=== PATIENT | female | born 1930 | race Caucasian/White ===

== ENCOUNTER 2018-12-15 16:18 | Observation (INO) | payer MEDICARE, BC ==
[2018-12-15] MEDS ORDERED: TYLENOL 325 MG PO PRN (20:57)
[2018-12-15 21:11] LABS: BASOPHIL % 0.4 % (0.0-0.4); Basophil (Absolute #) 0.03 (0-0.4); Eosinophil % 5.7 % (0.00-5.0); Eosinophil (Absolute #) 0.44 (0-0.5); Granulocyte Absolute (ANC) 4.07 (1.4-6.9); Granulocytes % 52.9 % (36.0-66.0); Hematocrit 34.1 % (35-47); Hemoglobin 11.2 gm/dl (12.0-16.0); Lymphocyte (Absolute #) 2.18 (1.0-4.6); Lymphocytes % 28.3 % (24.0-44.0); Mean Cell Volume 99.4 fl (78-100); Mean Corpuscular Hgb Concent. 32.8 g/dl (32-36); Mean Platelet Volume 9.3 fl (6-9.5); Monocyte (Absolute #) 0.98 (0.0-1.3); Monocytes % 12.7 % (0.0-12.0); Platelet Count 485 K/mm3 (150-450); Red Blood Count 3.43 M/mm3 (4.1-5.4); White Blood Count 7.7 K/mm3 (4.0-10.5)
[2018-12-15 21:13] LABS: Mean Corpuscular Hemoglobin 32.6 pg (26-32)
[2018-12-15 21:17] LABS: ALBUMIN 4.6 g/dL (3.5-5.0); ANION GAP 17.7 MEQ/L (5-15); BILIRUBIN,TOTAL 0.5 mg/dL (0.2-1.3); Calcium 10.1 mg/dL (8.4-10.2); Creatinine 1 2.04 mg/dL (0.52-1.04); Potassium 4.9 mmol/L (3.5-5.1); Total Protein 8.7 g/dL (6.3-8.2)
[2018-12-15] MEDS: Sodium Chloride 0.9% 1000 ML 1,000 ML IV SCH (21:55)
[2018-12-15] MEDS: Aldactone 25 MG PO SCH (23:09)
[2018-12-15] MEDS: ZOCOR 20MG PO SCH (23:09)
[2018-12-15] MEDS: Xalatan OP SCH (23:10)
[2018-12-15] MEDS: Timolol 0.25% Opth Sol 5 ML OP SCH (23:10)
[2018-12-16] MEDS ORDERED: Unasyn 1.5GM / NaCl 100ML 100 ML IV SCH
[2018-12-16] MEDS ORDERED: Unasyn 1.5GM Vial ONE ×2 (00:43→05:57)
[2018-12-16] MEDS ORDERED: Sodium Chloride 0.9% 100 ML IVPB 100 ML IV ONE ×2 (00:44→05:58)
[2018-12-16] MEDS: Unasyn 1.5GM / NaCl 100ML 1.5 GM/100 ML IVPB IV SCH ×5 (00:50→23:02)
--- NOTE | 2018-12-16 08:50 | PCM.NOTE ---
Date and Time: 12/16/18844 Subjective Assessment: doing better - Review of Systems Constitutional: No Fever, No Chills Eyes: No Symptoms Ears, Nose, & Throat: No Symptoms Respiratory: No Cough, No Short Of Breath Cardiac: No Chest Pain, No Edema, No Syncope Abdominal/Gastrointestinal: No Abdominal Pain, No Nausea, No Vomiting, No Diarrhea Genitourinary Symptoms: No Dysuria Musculoskeletal: No Back Pain, No Neck Pain Skin: Cellulitis, No Rash Neurological: No Dizziness, No Focal Weakness, No Sensory Changes Psychological: No Symptoms Endocrine: No Symptoms Hematologic/Lymphatic: No Symptoms Immunological/Allergic: No Symptoms Objective Exam General Appearance: no apparent distress, alert Neurologic Exam: alert, oriented x 3, cooperative, normal mood/affect, nml cerebellar function, sensation nml, No motor deficits Skin Exam: normal color, warm, dry Eye Exam: PERRL, EOMI, eyes nml inspection Ears, Nose, Throat Exam: normal ENT inspection, pharynx normal, moist mucous membranes Neck Exam: normal inspection, non-tender, supple, full range of motion Respiratory Exam: normal breath sounds, lungs clear, No respiratory distress Cardiovascular Exam: regular rate/rhythm, normal heart sounds, edema Gastrointestinal/Abdomen Exam: soft, No tenderness, No mass Extremity Exam: normal inspection, normal range of motion Back Exam: normal inspection, normal range of motion, No CVA tenderness, No vertebral tenderness Pelvic Exam: deferred Rectal Exam: deferred OBJECTIVE DATA Vital Signs: Vital Signs - 24 hr Temp Pulse Resp BP Pulse Ox 12/16/18 06:45 98.5 F 75 18 124/60 97 12/16/18 04:00 97.8 F 82 20 155/70 94 L 12/16/18 00:00 97.6 F 75 20 118/55 94 L 12/15/18 20:00 97.5 F 73 18 143/70 98 12/15/18 16:48 98.7 F 81 20 139/63 98 Pain Assessment - Last Documented Pain Intensity 0 Pain Scale Used [facility] Intake and Output: Intake & Output 12/13/18 12/14/18 12/15/18 12/16/18 11:59 11:59 11:59 11:59 Intake Total 1068 Output Total 2100 Balance -1032 Weight 71.6 kg Lab Results: Accuchecks Accucheck Value: 100 Accucheck Value: 86 Lab Results-Last 24 Hours 12/15/18 12/15/18 12/15/18 Range/Units 18:30 18:30 21:32 WBC 7.7 (4.0-10.5) K/mm3 RBC 3.43 L (4.1-5.4) M/mm3 Hgb 11.2 L (12.0-16.0) gm/dl Hct 34.1 L (35-47) % MCV 99.4 (78-100) fl MCH 32.6 H (26-32) pg MCHC 32.8 (32-36) g/dl RDW 13.0 (11.5-14.0) % Plt Count 485 H (150-450) K/mm3 MPV 9.3 (6-9.5) fl Gran % 52.9 (36.0-66.0) % Eos # (Auto) 0.44 (0-0.5) Absolute Lymphs (auto) 2.18 (1.0-4.6) Absolute Monos (auto) 0.98 (0.0-1.3) Lymphocytes % 28.3 (24.0-44.0) % Monocytes % 12.7 H (0.0-12.0) % Eosinophils % 5.7 H (0.00-5.0) % Basophils % 0.4 (0.0-0.4) % Absolute Granulocytes 4.07 (1.4-6.9) Basophils # 0.03 (0-0.4) Sodium 139 (137-145) mmol/L Potassium 4.9 (3.5-5.1) mmol/L Chloride 99 (98-107) mmol/L Carbon Dioxide 27 (22-30) mmol/L Anion Gap 17.7 H (5-15) MEQ/L BUN 58 H (7-17) mg/dL Creatinine 2.04 H (0.52-1.04) mg/dL Estimated GFR 24.5 ML/MIN Glucose 91 (74-106) mg/dL Lactic Acid 1.4 (0.4-2.0) Calcium 10.1 (8.4-10.2) mg/dL Total Bilirubin 0.50 (0.2-1.3) mg/dL AST 41 H (14-36) U/L ALT 17 (0-35) U/L Alkaline Phosphatase 54 (38-126) U/L Serum Total Protein 8.7 H (6.3-8.2) g/dL Albumin 4.6 (3.5-5.0) g/dL Multi-Disciplinary Progress Notes: Multi-Disciplinary Progress Notes 12/16/18 07:17 Pharmacy Note by Sung [place] Estimated CRCL is 15ml/min. Please review if Metformin is needed. Initialized on 12/16/18 07:17 - END OF NOTE Assessment/Plan (1) Cellulitis and abscess of left lower extremity Current Visit: Yes Status: Acute Assessment & Plan: continue present management Code(s): L03.116 - CELLULITIS OF LEFT LOWER LIMB; L02.416 - CUTANEOUS ABSCESS OF LEFT LOWER LIMB (2) Cellulitis and abscess of right leg Current Visit: Yes Status: Acute Assessment & Plan: physical therapy for wound care Code(s): L03.115 - CELLULITIS OF RIGHT LOWER LIMB; L02.415 - CUTANEOUS ABSCESS OF RIGHT LOWER LIMB
[2018-12-16] MEDS: Glucophage 500 MG PO SCH ×2 (10:08→17:50)
[2018-12-16] MEDS: Aldactone 25 MG PO SCH ×2 (10:08→22:02)
[2018-12-16] MEDS: Timolol 0.25% Opth Sol 5 ML OP SCH ×2 (10:09→22:03)
[2018-12-16] MEDS: Sodium Chloride 0.9% 1000 ML 1,000 ML IV SCH (10:09)
[2018-12-16] MEDS: Sodium Chloride 0.9% 10 ML FLUSH Syringe IV SCH ×2 (14:45→22:04)
[2018-12-16] MEDS: ZOCOR 20MG PO SCH (22:03)
[2018-12-16] MEDS: Xalatan OP SCH (22:03)
[2018-12-17] MEDS: Sodium Chloride 0.9% 10 ML FLUSH Syringe IV SCH (06:41)
[2018-12-17] MEDS: Unasyn 1.5GM / NaCl 100ML 1.5 GM/100 ML IVPB IV SCH (06:41)
[2018-12-17 07:43] VITALS: BP 123/78; PULSE 74; O2SAT 93
[2018-12-17] MEDS: Glucophage 500 MG PO SCH (07:55)
[2018-12-17] MEDS: Timolol 0.25% Opth Sol 5 ML OP SCH (10:05)
[2018-12-17] MEDS: Aldactone 25 MG PO SCH (10:05)
== END 2018-12-17 10:20 | disposition home or self-care (01) ==
LOC: MED SURG 16:37
PROVIDERS: ADMIT General Practice; ATTEND General Practice
DX: L03.115 Cellulitis of right lower limb (principal); L03.116 Cellulitis of left lower limb; E11.65 Type 2 diabetes mellitus with hyperglycemia; N18.4 Chronic kidney disease, stage 4 (severe); I10 Essential (primary) hypertension; E11.9 Type 2 diabetes mellitus without complications; J44.9 Chronic obstructive pulmonary disease, unspecified; E78.00 Pure hypercholesterolemia, unspecified; Z79.899 Other long term (current) drug therapy
CPT/HCPCS: 36415; 80053; 82962; 83036; 83605; 85025; 87040; 97161; 97530; G0378; A6457; J0295; A9270-GY